=== PATIENT | female | born 1980 | race Caucasian/White ===

== ENCOUNTER 2019-12-11 07:49 | Outpatient (CLI) | payer OTHER, SELFPAY ==
[2019-12-11 08:03] LABS: Hematocrit 35.6 % (37.0-47.0); Hemoglobin 11.9 g/dL (12.0-15.0); Mean Corpuscular HGB Conc 33.4 g/dl (32-36); Mean Corpuscular Hemoglobin 27.2 pg (26-34); Mean Corpuscular Volume 81.5 fl (80-100); Mean Platelet Volume 11.3 fl (7.4-10.4); Platelet Count Result 187 k/mm3 (150-375); Red Blood Count 4.37 M/mm3 (4.2-5.4); Red Cell Distribution Width 11.8 % (11.5-14.5); White Blood Count 8.1 K/mm3 (4.5-10.0)
[2019-12-12 07:28] LABS: Rapid Plasma Reagin Non-Reactive (NonReactive)
== END 2019-12-11 07:50 | disposition home or self-care (01) ==
LOC: ANHLAB 07:51
PROVIDERS: Visit Provider Obstetrics & Gynecology
DX: Z34.93 Encounter for supervision of normal pregnancy, unspecified, third trimester (principal); Z3A.00 Weeks of gestation of pregnancy not specified
CPT/HCPCS: 36415; 85027; 86592; 86850; 86900; 86901

== ENCOUNTER 2019-12-12 09:56 | Inpatient (IN) | payer OTHER, SELFPAY ==
--- NOTE | 2019-11-19 16:18 | PC.NURSE ---
PATIENT IS A PREV C/S--PATIENT STATES SHE WANTS TO BECAUSE SHE HAS A ONE YEAR OLD AT HOME TO CARE FOR AFTER SHE HAS THE BABY. PATIENT STATES DR RIVERA FIRST TALK ABOUT REPEAT C/S BUT IS WILLING TO SEEN IF SHE WILL BE ABLE TO DO A . PATIENT STATES SHE NEVER DILATED WITH FIRST BABY AND HE WEIGHT OVER 9 LBS
[2019-12-12] VITALS (67 sets, daily range): BP systolic 83–127; BP diastolic 50–100; PULSE 61–240; RESP 14–74; TEMP 36.2–37.2; O2SAT 99–100; BMI 28.2
--- NOTE | 2019-12-12 00:49 | P.HP_ITS ---
H&P: HPI History of Present Illness Date/Time: 12/12/19 00:49 Chief complaint: Pre-admit, previous csection Narrative: 39 y/o at 39 weeks with a prior delivery, here for a scheduled repeat . Her has been uncomplicated. GBS pos. EFW 6#4oz four weeks ago. Review of Systems Review of Systems: All systems reviewed & are unremarkable except as noted in HPI and below PMFSH Past Medical History Medical History History of gestational diabetes Surgical History Surgical History History of delivery Family History Family History Other Unknown family medical history Social History Social History Substance use: never Spiritual care concerns: No Meds Home Medications and Allergies Home Medications Medication Instructions Recorded Confirmed Type PNV cmb#95-ferrous fumarate-FA 1 tablet PO DAILY 11/19/19 11/19/19 History [] Allergies Allergy/AdvReac Type Severity Reaction Status Date / Time No Known Allergies Allergy Verified 11/19/19 15:50 Exam Const: Orientation/consciousness: patient oriented x3 Other: Well- developed, well-nourished female in no acute distress. Neck: Thyroid: thyroid normal Lymphatic: no lymphadenopathy noted (in neck, axilla or inguinal nodes) Resp: Effort & Inspection: normal respiratory effort Auscultation: clear to auscultation bilaterally Cardio: Rate: regular rate Rhythm: regular rhythm Heart sounds: S1 normal heart sound present and S2 normal heart sound present GI: Other: ABD: Soft, nontender, gravid. FH 39 cm. FHR 150 bpm. : General: Yes no CVA tenderness Other: Cervix closed, thick. Back/Spine/Pelvis: Back: no CVA tenderness Skin: General skin exam: normal color and no rashes or lesions noted Neuro: General: patient oriented x3 Extrem: Other: Extremities: nontender with no edema Psych: Mental Status: mental status grossly normal Affect: normal affect Assessment and Plan Assessment and plan (1) History of delivery: Code(s): Z98.891 - History of uterine scar from previous surgery Status: Acute Assessment and Plan: A: IUP at 39 weeks with prior . P: She desires repeat . She understands risks of surgery to include risks of anesthesia, risks of pain, infection, bleeding, blood products, thromboembolic phenomena and damage to adjacent structures such as bowel, bladder, ureters, blood vessels and nerves. She understands all these risks and elects to proceed with surgery.
--- NOTE | 2019-12-12 11:19 | LDADM ---
This patient, Lashell Muro, was admitted to Labor/Delivery/Recovery 120 on 12/12/19 at 09:56. Plans for labor, pain management and were discussed with patient. Patient/family oriented to hospital policies and general routines including ID bracelet, bed and alarms, visiting hours, pain management, procedures, bathroom and other care routines, personal items, smoking policy, room service/diet and guest tray routines, security routines, and visiting hours. Patient/Family are encouraged to report perceived risks to care and to ask questions if they do not understand what they are told or what they should do. See OBIX for further documentation.
--- NOTE | 2019-12-12 12:17 | WPDHPUPDATE1 ---
History and Physical Update Update Date/Time: 12/12/19 12:17 History and Physical has been reviewed, including an updated exam of the patient. There are NO changes in the patient's condition. Risks, benefits, and alternatives have been discussed and questions answered. Patient agrees to proceed with procedure.
[2019-12-12] MEDS: LACTATED RINGERS 1,000 ML 125 ML IV CONT (13:01)
--- NOTE | 2019-12-12 13:15 | WPDANESEPPF ---
Anes - Initial Pre Proc Eval Procedure: Operation Date: 12/12/19 12:00 Proposed Procedures p Repeat Section - Zhao Lopez MD Date/Time: 12/12/19 13:15 Surgeon: Zhao Lopez MD Pre Op Diagnosis: Repeat C/S Patient Data Age: 39 Gender: F Height: 1.65 m Weight: 77 kg Last Vital Signs Pulse 74 12/12/19 12:47 BP 108/65 12/12/19 12:47 Allergies Allergy/AdvReac Type Severity Reaction Status Date / Time No Known Allergies Allergy Verified 11/19/19 15:50 Home Medications Medication Instructions Recorded Confirmed Type PNV cmb#95-ferrous fumarate-FA 1 tablet PO DAILY 11/19/19 11/19/19 History [] Patient hx anesthesia problems: none Family hx anesthesia problems: none PMFSH Surgical History Surgical History History of delivery Family History Family History Other Unknown family medical history Social History Social History Substance use: never Spiritual care concerns: No Anes - Eval Final PreProcedure Day of Procedure 12/12/19 13:15 Patient weight: overweight Heart: regular rate and rhythm Lungs: clear to auscultation and normal air movement Airway: Mallampati scale class II Neurological: alert and oriented Last oral intake: >/= 8 hours ASA classification: III Emergent: no Anesthetic plan: proceed Anesthesia type and monitoring: regional spinal Informed Consent: The patient's anesthetic plan and its attendant risks and benefits were discussed with the patient/family/POA. Questions were solicited and answers provided to the satisfaction of the patient/family/POA.
[2019-12-12] MEDS: KETOROLAC 30 MG/ML VIAL (*BKC) IV PUSH (14:28)
[2019-12-12] MEDS: OXYTOCIN 30 UNITS/NS 500 ML 30 UNITS/500 ML BAG 125 UNITS IV CONT (16:11)
--- NOTE | 2019-12-12 17:51 | PM.OBPRVD ---
OB - Delivery Note Procedure Procedure: Procedures Operation Date: 12/12/19 12:00 Actual Procedures Side Surgeon p Repeat Section Bilateral Zhao Lopez MD Estimated blood loss (mL): 390 Anesthesia type: Spinal Disposition: PACU Complications: None Narrative: The patient was taken to the operating room where she was prepared and draped in the usual sterile fashion in dorsal supine position with a leftward tilt. She received cefazolin preoperatively. Spinal anesthesia was found to be adequate. A Pfannenstiel skin incision was made along the previous scar line and was carried through to the underlying layer of the fascia. The fascia was incised in the midline and the incision was extended laterally. The fascia was dissected free of the underlying rectus muscles. The rectus muscles were in the midline. The peritoneum was identified, tented up and entered sharply. The peritoneal incision was extended superiorly and inferiorly with good visualization of the bladder. The bladder blade was placed. The vesicouterine peritoneum was identified, tented up and entered sharply. The incision was extended laterally and the bladder flap was developed. The bladder blade was replaced. The uterus was then incised sharply in a transverse fashion along the lower uterine segment. The incision was extended laterally. The infant's head was delivered atraumatically to the sterile field, followed by the body. The nose and mouth were bulb suctioned. After a delay, the cord was clamped and cut. The was handed off the field. Cord blood was collected. The placenta was removed manually and was passed off the field. The uterus was exteriorized and cleared of all clots and debris. The uterus, tubes and ovaries were normal in appearance. The uterine incision was reapproximated using 0 Monocryl in a running, locked fashion. A second, imbricating layer of the same suture was placed. Excellent hemostasis resulted as did excellent reapproximation of the normal anatomy. The uterus was returned the abdomen. The pelvis was irrigated copiously with warmed normal saline. Rigorous hemostasis was assured. The fascial layer was reapproximated using 0 Vicryl in a running fashion. The skin was closed with a running, subcuticular stitch of 4 0 Vicryl. Dermaflex was applied externally. Sponge, lap, needle and instrument counts were correct. The patient was taken to the recovery room in stable condition. The went to the nursery in stable condition. I was present and scrubbed the entire procedure. Baby Date of : 12/12/19 Time of : 14:12 Weeks of gestation at delivery: 39 gender: Male Weight (pounds): 7 Weight (ounces): 13 presentation: vertex Placenta delivery description: Manual Removal and Normal Configuration cord vessel description: 3 Vessels and Nuchal Cord score one minute: 8 score five minutes: 9
--- NOTE | 2019-12-12 17:53 | PM.OBDSVD ---
DS: Admitting Diagnosis Admitting Diagnosis Admitting Diagnosis: IUP at 39 weeks Prior DS: Discharge Diagnosis Discharge Diagnosis (1) S/P repeat low transverse : Code(s): Z98.891 - History of uterine scar from previous surgery Status: Acute OB - DS: Summary OB Procedures : None OB Procedures Intrapartum: OB Procedures: : None Peripartum Data Procedures: Procedures Operation Date: 12/12/19 12:00 Actual Procedures Side Surgeon p Repeat Section Bilateral Zhao Lopez MD Time Spent with Patient Time attestation: Total time spent providing and/or coordinating discharge services: Discharge Plan Discharge Attending physician on discharge: Zhao Lopez Consulting providers: Rc Frank Discharging Clinician: Zhao Lopez Patient Disposition: Home, Self-Care Activity: may shower, may drive after 2 weeks and pelvic rest Diet: regular Wound Care Instructions: incision open to air Discharge Instructions: Education: Mom and Baby Guide Given to: Mother Follow-Up: Call your delivering provider's office for an appointment to be seen in: 6 Weeks Mom and baby should come to the [facility] for the follow-up appointment. Appointment Date/Time: December 16, 2019 at 11:00 am What to expect at your follow-up visit: Blood Pressure Check Physical Assessment Call [phone] if you are unable to keep your appointment time. BREAST CARE: * Wear a snug supportive bra. * For engorgement discomfort: Breast Feeding: * Apply warm moist washcloths * Express milk as needed to relieve engorgement * Wear loose clothing * For sore nipples: * Identify correct latch-on * Apply warm moist washcloths before and after nursing * Air dry nipples after nursing * May apply Lansinoh cream to nipples ABDOMINAL INCISION: * Allow incision to air dry * Do NOT use lotions for powders on your incision * When showering, allow soap and water to run over the incision, but do not wash incision ACTIVITY: * Rest as much as possible. * Do not exercise or lift anything heavier than your baby (such as laundry or other children.) * Avoid stairs or driving as much as possible. * Do not put anything into the vagina. No douching, tampons, or sexual activity until seen by physician. NOTIFY PHYSICIAN IF YOU HAVE ANY QUESTIONS OR IF ANY OF THE FOLLOWING SYMPTOMS OCCUR: * If your episiotomy or incision becomes red, swollen, or more painful than what you have experienced in the hospital. * If your vaginal bleeding becomes foul smelling. * If your vaginal bleeding becomes more heavy than a period or if your bleeding changes from pink to bright red. However, you may pass an occasional walnut-sized clot once or twice for the first week . * If you experience a sharp, shooting pain in your calves. * If you discover a hard, reddened area on your breast or if you experience flu-like symptoms. DIET: * Eat regular, well-balanced meals. * Drink plenty of fluids daily. If , drink to thirst.Call or return if temperature above 100.4? F, increased abdominal pain, increased vaginal bleeding or any new problems. Stand Alone Forms: General Discharge Information Follow-up/Referrals: Zhao Lopez MD [Physician] - (4 weeks) Discharge Medications: New hydrocodone-acetaminophen [[place]] 5-325 mg tablet 1 - 2 tablet PO Q6H PRN (Reason: pain) Qty: 30 RF: 0 ibuprofen 600 mg tablet 600 mg PO Q6H PRN (Reason: cramps) Qty: 30 RF: 0 Continued PNV cmb#95-ferrous fumarate-FA [] 28 mg iron- 800 mcg Tablet 1 tablet PO DAILY RF: 0 Date of admission: 12/12/19 09:56 Primary Care Provider: PHYSICIAN,IT IN[employer]STRUCTURE ENGINEER Admitting Provider: Zhao Lopez Discharge Date/Time: 12/14/19 10:19 Attending physician on admission: Yonny Bowser
--- NOTE | 2019-12-12 18:03 | PC.NURSE ---
Patient transferred to post room #286 via stretcher. Support person present. Oriented to unit, room, information board, rooming in, admission packet and security measures. Patient verbalizes understanding.
[2019-12-12] MEDS: DEXTROSE 5%/0.45% SOD CHL 1,000 ML 125 ML IV CONT (20:30)
[2019-12-13 04:45] VITALS: BP 118/68; PULSE 65; RESP 16; TEMP 36.6
[2019-12-13 05:12] LABS: Basophils Percent Auto 0.4 % (0.2-1.2); Eosinophils Percent Auto 0.1 % (0-4.4); Hematocrit 28.9 % (37.0-47.0); Hemoglobin 9.5 g/dL (12.0-15.0); Immature Granulocyte Absolute 0.02 K/mm3 (0.00-0.031); Immature Granulocyte Percent A 0.3 % (0-0.5); Lymphocytes Absolute Auto 1.51 K/mm3 (0.9-3.2); Lymphocytes Percent Auto 21.2 % (18.3-44.2); Mean Corpuscular HGB Conc 32.9 g/dl (32-36); Mean Corpuscular Hemoglobin 27.3 pg (26-34); Mean Platelet Volume 11.6 fl (7.4-10.4); Monocytes Absolute Auto 0.5 K/mm3 (0.1-0.6); Monocytes Percent Auto 7.2 % (2.6-8.5); Neutrophils Percent Auto 70.8 % (45.5-73.1); Platelet Count Result 148 k/mm3 (150-375); Red Blood Count 3.48 M/mm3 (4.2-5.4); Red Cell Distribution Width 12.1 % (11.5-14.5); White Blood Count 7.1 K/mm3 (4.5-10.0)
[2019-12-13] MEDS: IBUPROFEN 600 MG TABLET PO ×4 (05:45→21:02)
--- NOTE | 2019-12-13 07:04 | P.PNOB_ITS ---
OB - PN: Subj Subjective Date/time seen: 12/13/19 07:04 Patient comments: no complaints and pain well controlled baby status: doing well and nursing well OB - PN: Obj Data Labs CBC & Chem 7: 12/13/19 04:56 Labs: Laboratory Results - last 24 hr 12/13/19 04:56 WBC 7.1 RBC 3.48 L Hgb 9.5 L Hct 28.9 L MCV 83.0 MCH 27.3 MCHC 32.9 RDW 12.1 Plt Count 148 L MPV 11.6 H Immature Gran % (Auto) 0.3 Neut % (Auto) 70.8 Lymph % (Auto) 21.2 Taliaferro % (Auto) 7.2 Eos % (Auto) 0.1 Baso % (Auto) 0.4 Lymph # (Auto) 1.51 Taliaferro # (Auto) 0.5 Eos # (Auto) 0.0 Baso # (Auto) 0.0 Abs Immat Gran (auto) 0.02 Absolute Neuts (auto) 5.0 Absolute Nucleated RBC 0.0 Nucleated RBC % 0.0 OB - PN A/P Plan day: 1 Plan: routine care Time Spent With Patient Time: Total time spent is greater than 50% in coordination of care (as documented) at patient's floor/unit and/or counseling patient: Time with patient: less than 15 minutes Review of Systems Review of Systems: All systems reviewed & are unremarkable except as noted in HPI and below Exam Const: General: no acute distress Eyes: General: appearance normal, both eyes and all related structures Neck: Neck: supple and no JVD Thyroid: thyroid normal Resp: Effort & Inspection: normal respiratory effort Auscultation: clear to auscultation bilaterally Cardio: Rate: regular rate Rhythm: regular rhythm GI: Inspection: normal to inspection and incision Percussion: Yes normal to percussion Auscultation: normal bowel sounds : General: Yes bladder normal to palpation External Female Exam: normal external appearance Speculum Exam - Vagina: normal vaginal discharge and No vaginal bleeding Speculum Exam - Cervix: nontender Bimanual exam- vagina & uterus: bladder normal to palpation and No Cervical tenderness present OB/external & speculum: No vaginal bleeding Skin: General skin exam: no rashes or lesions noted Extrem: General: normal to inspection and no edema Psych: Mental Status: mental status grossly normal Affect: normal affect
[2019-12-13 08:20] VITALS: BP 113/68; PULSE 76; RESP 18; TEMP 36.6; O2SAT 98
[2019-12-13] MEDS: POLYSACCHARIDE IRON COMPLEX 150 MG CAPSULE PO ×2 (08:45→17:27)
[2019-12-13] MEDS: DOCUSATE SODIUM 100 MG CAPSULE PO ×2 (08:45→17:27)
[2019-12-13] MEDS: MULTIVIT/MIN/PREN/FOL AC/IRON TABLET 1 TAB PO (08:45)
--- NOTE | 2019-12-13 09:00 | PC.NURSE ---
Mother called out for assist with feeding due to sleepy infant. This is mother's 2nd child to breastfeed. Consulted with patient, reviewed infant feeding cues, frequencies, duration of feedings, feeding elimination flow sheet, and signs of adequate intake. Demonstrated stimulation techniques to wake infant for feeding. Assisted with infant to breast. Reviewed positioning/alignment in cross cradle, holding breast in U hold and guided asymmetrical latch on. Discussed rational for each. Several attempts before infant was able to wake to latch deeply. Once at breast infant nursed eagerly, with steady draws and frequent swallowing noted. Reviewed signs of a correct latch, effective nursing and suck swallow ratio. Infant was able to maintain latch without discomfort to mother. Reviewed signs of a correct latch, effective nursing and suck swallow ratio. Nipple care reviewed. Advised to stimulate to keep infant awake and nursing effectively for increased intake and assist with maintaining deep latch. Demonstrated how to adjust latch more deeply while feeding. Instructed mother to call out for RN assistance if she is unable to latch infant for feeding or she has discomfort with nursing. Instructed feeding should be initiated three hours from start of last feeding or if feeding cues are noted before. Mother voiced understanding of information shared. Mother is feeding as required and waking infant to feed if needed. is currently meeting outcomes for weight, output, jaundice and feeding frequencies. Mother states she feels confident to continue effective at home. Reviewed transition to breast milk, signs of adequate intake, and engorgement/relief. Instructed to call ICP if intake/output less than required. Reviewed regular medications mother is taking. Information provided per Janelle. Reviewed community resources on the [facility] website and in the Mom/Baby guide. Information on outpatient services provided. Mother has no further questions at this time.
--- NOTE | 2019-12-13 09:11 | WPDANLDPN2 ---
Anes-Prog Note L&D Date/Time: 12/13/19 09:11 Comfortable throughout: section Neuraxial method: spinal Epidural/Spinal procedure site: clean & non-tender Neuro status: Neuro function grossly intact. Cardiovascular status: normal Respiratory status: normal Airway patency: baseline Mental status: baseline Post-Op hydration status: normal Vital Signs: Last Vital Signs Temp 36.6 C 12/13/19 04:45 Pulse 65 12/13/19 04:45 Resp 16 12/13/19 04:45 BP 118/68 12/13/19 04:45 Pulse Ox 100 12/12/19 17:45 I/O: Intake & Output 12/12/19 12/13/19 12/13/19 23:59 07:59 15:59 Intake Total 700 400 Output Total 500 800 Balance 200 -400 Post-procedural complaints: none Patient feedback: Patient satisfied with anesthetic care.
--- NOTE | 2019-12-13 09:12 | WPDANLDNPN2 ---
Anes-Prog Note L&D-Neuraxial Date/Time: 12/13/19 09:12 Neuraxial medications: intrathecal PF morphine Opiod-related complaints: none Patient feedback: Patient satisfied with post-operative pain management.
[2019-12-13 18:55] VITALS: BP 106/68; PULSE 72; RESP 16; TEMP 36.9
[2019-12-14] MEDS: IBUPROFEN 600 MG TABLET PO (05:18)
--- NOTE | 2019-12-14 07:31 | PM.OBPNVD ---
OB - PN: Subj Subjective Date/time seen: 12/14/19 07:31 Patient comments: pain well controlled [place] baby status: doing well and nursing well OB - PN: Obj Data Labs CBC & Chem 7: 12/13/19 04:56 OB - PN A/P Time Spent With Patient Time: Total time spent is greater than 50% in coordination of care (as documented) at patient's floor/unit and/or counseling patient: Review of Systems Review of Systems: All systems reviewed & are unremarkable except as noted in HPI and below Exam Const: General: no acute distress Eyes: General: appearance normal, both eyes and all related structures Neck: Neck: supple and no JVD Thyroid: thyroid normal Resp: Effort & Inspection: normal respiratory effort Auscultation: clear to auscultation bilaterally Cardio: Rate: regular rate Rhythm: regular rhythm GI: Inspection: incision (cdi) Percussion: Yes normal to percussion : General: Yes bladder normal to palpation External Female Exam: normal external appearance Speculum Exam - Vagina: normal vaginal discharge and No vaginal bleeding Speculum Exam - Cervix: nontender Bimanual exam- vagina & uterus: bladder normal to palpation and No Cervical tenderness present OB/external & speculum: No vaginal bleeding Skin: General skin exam: no rashes or lesions noted Extrem: General: normal to inspection and no edema Psych: Mental Status: mental status grossly normal Affect: normal affect
[2019-12-14] MEDS: MULTIVIT/MIN/PREN/FOL AC/IRON TABLET 1 TAB PO (07:52)
[2019-12-14] MEDS: POLYSACCHARIDE IRON COMPLEX 150 MG CAPSULE PO (07:53)
[2019-12-14] MEDS: DOCUSATE SODIUM 100 MG CAPSULE PO (07:53)
[2019-12-14 08:00] VITALS: BP 114/69; PULSE 65; RESP 16; TEMP 36.4; O2SAT 100
[2019-12-16 11:27] VITALS: BP 136/74; PULSE 66; RESP 20; O2SAT 100
== END 2019-12-14 10:19 | disposition home or self-care (01) | DRG 788 ==
LOC: ANHLDR 13:15 → ANHOB2 17:54 → ANHLDR 12-16 11:52 → ANHOB2 12-16 11:52
PROVIDERS: Admitting Provider Obstetrics & Gynecology; Visit Provider Obstetrics & Gynecology
PROC: 10D00Z1 Extraction of Products of Conception, Low, Open Approach (ICD-10-PCS; CPT 59514; principal; 2019-12-12 12:00)
DX: O34.211 Maternal care for low transverse scar from previous cesarean delivery (principal); Z37.0 Single live birth; Z3A.39 39 weeks gestation of pregnancy; O99.824 Streptococcus B carrier state complicating childbirth; O69.81X0 Labor and delivery complicated by cord around neck, without compression, not applicable or unspecified
CPT/HCPCS: 36415; 85025; A9270; J0131; J1885; J2175; J2274; J2370; J2405; J2590; J7120

== ENCOUNTER → 2021-12-02 16:14 | Outpatient (CLI) | payer OTHER, SELFPAY ==
--- NOTE | ~2021-12-02 | MM_ITS ---
EXAMINATION: MM screening josey BI w stephie HISTORY: Screening mammogram TECHNIQUE: Craniocaudal and mediolateral oblique 3-D tomosynthesis images were obtained and synthetic 2-D images were generated. CAD analysis was submitted and interpreted. COMPARISON: No prior mammogram is available for comparison at this institution. BREAST PARENCHYMAL COMPOSITION: The breasts are extremely dense, which lowers the sensitivity of mamm ography. FINDINGS: There is no evidence of suspicious mass, calcification, or architectural distortion to sugg est malignancy in either breast. There has been no suspicious interval change. IMPRESSION: 1. No mammographic evidence of malignancy. 2. Recommend routine screening mammography in one year. BI-RADS Category 1: Negative Reviewed, dictated and finalized at location B.
== END ==
PROVIDERS: PCP Physician Assistant; Visit Provider Obstetrics & Gynecology
DX: Z12.31 Encounter for screening mammogram for malignant neoplasm of breast (principal)
CPT/HCPCS: 77063; 77067

== ENCOUNTER 2022-05-09 01:28 | Emergency (ER) | payer OTHER, SELFPAY ==
[2022-05-09 01:32] VITALS: BP 136/78; PULSE 82; RESP 18; TEMP 37.2; O2SAT 100
--- NOTE | 2022-05-09 01:57 | ED.GENADULT ---
HPI - General Adult General Chief complaint: Headache Stated complaint: Headache, sore throat Time Seen by Provider: 05/09/22 01:31 History of Present Illness HPI narrative: 41-year-old female presented to the emergency department for evaluation of sore throat and headache. Patient states that on [place] her symptoms started acutely. Patient did have a telemedicine evaluation and they suspected it was influenza. Patient reports she has had vaccination against COVID and influenza. Patient does describe a worsening sore throat and worsening headache. Patient has been taking Tylenol and ibuprofen for pain control without significant improvement. Patient denies any prior history of migraine headaches. Related Data Home Medications Medication Instructions Recorded Confirmed oseltamivir 75 mg capsule mg 05/09/22 Allergies Allergy/AdvReac Type Severity Reaction Status Date / Time No Known Allergies Allergy Verified 05/09/22 01:35 Review of Systems Review of Systems: CONSTITUTIONAL: Denies fever, chills, or sweats. EYES: Denies visual changes, redness, or discharge. ENT: Denies rhinorrhea, congestion, sore throat, or otalgia. CARDIOVASCULAR: Denies chest pain, palpitations, or edema. RESPIRATORY: Denies cough or dyspnea. GASTROINTESTINAL: Denies abdominal pain, nausea, vomiting, or diarrhea. GENITOURINARY: Denies dysuria or hematuria. SKIN: Denies rash or itching. MUSCULOSKELETAL: Denies back pain, joint pain, or myalgia. NEUROLOGIC: See HPI [facility] Past Medical History Medical History (Updated 05/10/22 @ 00:00 by Minerva Spann) History of gestational diabetes Surgical History Surgical History (Updated 12/12/19 @ 17:54 by Zhao Lopez MD) History of delivery Family History Family History Other Unknown family medical history Social History Social History Substance use: never Spiritual care concerns: No Exam Narrative: APPEARANCE: Well appearing, no pain, no distress, well-nourished. HEAD: normocephalic, atraumatic. EYES: PERRLA/EOMI, conjunctivae clear. NOSE: Normal no drainage EARS:TMS clear with good light reflex. THROAT: Bilateral tonsillar exudate NECK: Supple. No adenopathy, no masses. RESPIRATORY: Airway patent, respirations nonlabored. Clear to auscultation bilaterally, no rales, rhonchi, wheezing. CARDIOVASCULAR: Regular rate and rhythm without murmurs rubs or gallops. ABDOMINAL: Soft, nontender, nondistended, normal bowel sounds MUSCULOSKELETAL: Moves all extremities. Strength/ROM intact, No edema, No calf tenderness. NEURO: Alert. Cranial nerves II through XII intact. Grossly intact SKIN: Warm, dry. Normal Color Course Course Emergency Course: Differential diagnosis for patient's symptoms did include but were not limited to strep throat, influenza, RSV, COVID, viral syndrome. Patient did test positive for strep throat. Patient was started on amoxicillin and amoxicillin will be continued. Patient was treated with IV normal saline, IV Benadryl, IV Compazine and had resolution of her headache. Differential diagnosis for headache did include migraine, acute headache. Patient is updated on results of the work-up and plan for treatment. All question concerns were addressed. Patient was improved at time of discharge. Vital Signs Vital signs: Vital Signs Temperature 98.9 F 05/09/22 01:32 Pulse Rate 82 05/09/22 01:32 Respiratory Rate 18 05/09/22 01:32 Blood Pressure 136/78 05/09/22 01:32 Pulse Oximetry 100 05/09/22 01:32 Oxygen Delivery Room Air 05/09/22 01:32 Temperature 98.9 F 05/09/22 01:32 Pulse Rate 82 05/09/22 01:32 Respiratory Rate 18 05/09/22 01:32 Blood Pressure 136/78 05/09/22 01:32 Pulse Oximetry 100 05/09/22 01:32 Oxygen Delivery Room Air 05/09/22 01:32 Medical Decision Making Vital Signs Jenny
[2022-05-09] MEDS: PROCHLORPERAZINE EDISYLATE 10 MG/2 ML VIAL IV PUSH (02:03)
[2022-05-09] MEDS: SODIUM CHLORIDE 0.9% IV 1,000 ML 999 ML IV CONT (02:03)
[2022-05-09] MEDS: KETOROLAC 15 MG/ML VIAL (*BKC) IV PUSH (02:03)
[2022-05-09] MEDS: diphenhydrAMINE HCl INJ 50 MG/ML VIAL 25 MG IV PUSH (02:03)
[2022-05-09 02:23] LABS: Strep Group A RT-PCR DETECTED (Negative)
[2022-05-09 02:35] LABS: Influenza A QL RT-PCR Negative (Negative); Influenza B QL RT-PCR Negative (Negative); RSV RNA, RT-PCR Negative (Negative); SARS-CoV-2 RNA PCR Negative
[2022-05-09] MEDS: AMOXICILLIN 500 MG CAPSULE PO (02:35)
== END 2022-05-09 02:54 | disposition home or self-care (01) ==
PROVIDERS: Emergency Provider Emergency Medicine; PCP Physician Assistant
DX: J02.0 Streptococcal pharyngitis (principal); Z20.822 Contact with and (suspected) exposure to COVID-19
CPT/HCPCS: 87637; 87651; 96361; 96374; 96375; 99284; A9270; J0780; J1200; J1885; J7030

== ENCOUNTER → 2023-05-02 13:58 | Outpatient (CLI) | payer OTHER, SELFPAY ==
--- NOTE | ~2023-05-02 | MM_ITS ---
EXAMINATION: MM screening [facility] BI w stephie HISTORY: Screening mammogram TECHNIQUE: Craniocaudal and mediolateral oblique 3-D tomosynthesis images were obtained and synthetic 2-D images were generated. CAD analysis was submitted and interpreted. COMPARISON: 12/02/2021 BREAST PARENCHYMAL COMPOSITION: The breasts are extremely dense, which lowers the sensitivity of mamm ography. FINDINGS: No suspicious mass, calcification, or architectural distortion are identified in either kevin ast to suggest malignancy. There has been no suspicious interval change. IMPRESSION: 1. No mammographic evidence of malignancy. 2. Recommend routine screening mammography in one year. BI-RADS Category 1: Negative Reviewed, dictated and finalized at location A. 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
== END ==
PROVIDERS: PCP Obstetrics & Gynecology; Visit Provider Obstetrics & Gynecology
DX: Z12.31 Encounter for screening mammogram for malignant neoplasm of breast (principal)
CPT/HCPCS: 77063; 77067

== ENCOUNTER 2025-03-07 12:16 | Outpatient (CLI) | payer OTHER, SELFPAY ==
--- NOTE | ~2025-03-07 | MM_ITS ---
EXAMINATION: MM screening [facility] BI w stephie HISTORY: Screening TECHNIQUE: Craniocaudal and mediolateral oblique 3-D tomosynthesis images were obtained and synthetic 2-D images were generated. CAD analysis was submitted and interpreted. COMPARISON: Comparison to multiple prior studies sequentially, with oldest reviewed study dated 12/02/2021. BREAST PARENCHYMAL COMPOSITION: Dense: The breasts are extremely dense, which lowers the sensitivity of mammography. FINDINGS: There is no evidence of suspicious mass, calcification, or architectural distortion to suggest malignancy in either breast. There has been no suspicious interval change. IMPRESSION: 1. No mammographic evidence of malignancy. 2. Recommend routine screening mammography in one year. BI-RADS Category 1: Negative Reviewed, dictated and finalized at location B. UCTION CONTROL SUPERVISOR
--- OUTSIDE RECORDS SUMMARY | 2025-03-07 16:50 | XMS_ITS | Encounter Summary ---
Author Organization [facility] Address [address] [place] [address] Care Team Providers Care Payroll And Benefits Manager Name Role Phone Unavailable Primary Care Provider Unavailabl e Encounter Details Date Type Department Care Team (Latest Contact Info) Description 09/28/2007 Outpatient Historical [facility] GRADUATE RESEARCH ASSISTANT - [place] [id number] [facility] [address] [place] [address] Hannah Yanes, PAUL [address] [facility] [facility] [address] [place] [address] Routine Gynecological Examination Social History Tobacco Use Types Packs/Day Years Used Date Smoking Tobacco: Never Assessed Comments Unknown Sex and Gender Information Value Date Recorded Sex Assigned at Not on file Legal Sex Female 4:03 AM SERVICE SPECIALIST Gender Identity Not on file Sexual Orientation Not on file documented as of this encounter Plan of Treatment Not on file documented as of this encounter Procedures Procedure Name Priority Date/Time Associated Diagnosis Comments CERV/VAG CYTOPATH,SUREPATH FCL PT &RFLX HPV Routine 09/27/2007 12:18 PM CDT documented in this encounter Results * CERV/VAG CYTOPATH,SUREPATH FCL PT &RFLX HPV (09/27/2007 12:18 PM CDT) SOURCE Information not provided [facility] LAST MENSTRUAL PERIOD Information not provided [facility] CYTOTECHNOLOGI ST: ANTONIO SUMMERS(ASCP) [facility] Comment: Lab test performed by: [employer] [facility] [address] [place] [address] LUKE WHALEN MD REPORT STATUS FINAL [facility] Tools And Parts Attendant Pap Comment This case was successfully processed by the [employer]) slide police manager. Based on the cytology result, reflex High Risk HPV DNA testing was not performed. [facility] ADEQUACY: Satisfactory for evaluation. Endocervical/trans formation zone component absent. Age and/or menstrual status not provided [facility] PREV PAP: Information not provided [facility] CLINICAL INFORMATION Information not provided [facility] PREV BX: Information not provided [facility] PAP INTERP Negative for intraepithelial lesion or malignancy. [facility] Endocervical 09/27/2007 12:1 8 PM CDT 09/28/2007 12:22 PM CDT Hannah Yanes NP PATHOLOGY/CYTOLOGY ORDERABLES Fi nal Result [facility] CLIA# [id number] [address] [facility] [address] documented in this encounter Visit Diagnoses Diagnosis Routine gynecological examination documented in this encounter
--- OUTSIDE RECORDS SUMMARY | 2025-03-07 16:50 | XMS_ITS | Encounter Summary ---
Author Organization [facility] Address [address] [place] [address] Care Team Providers Care Title Abstractor Name Role Phone Sheldon Dunn DO Primary Care Provider [phone] Encounter Details Date Type Department Care Team (Late st Contact Info) Description 05/30/2020 Lab Requisition [facility] [address] [facility] [facility] [place] [id number] Ismael Lewis MD [address] [facility] [address] Social History Tobacco Use Types Packs/Day Years Used Date Smoking Tobacco: Former Cigarettes Smokeless Tobacco: Never Alcohol Use Standard Drinks/Week Comments Yes 0 (1 standard drink = 0.6 oz pur e alcohol) Comments Unknown Sex and Gender Information Value Date Recorded Sex Assigned at Not on file Legal Sex Female 8:10 PM CDT Gender Identity Not on file Sexual Orientation Not on file documented as of this encounter Plan of Treatment Not on file documented as of this encounter Procedures Procedure Name Priority Date/Time Associated Diagnosis Comments DERMATOPATHOLOGY Routine 05/29/2020 3:33 AM OPEN DIE INSPECTOR documented in this encounter Results * DERMATOPATHOLOGY (05/29/2020 3:33 AM OPEN DIE INSPECTOR) Case Report Dermatopathology Report Case: [id number] Authorizing Provider: Ismael Lewis MD Collected: 05/29/2020 03:33 AM Ordering Location: [facility] Received: 05/30/2020 11:45 AM Pathologist: Denzel Arceo MD Specimens: A) - Skin, mid back B) - Skin, left axilla 4:51 PM [facility] Final Diagnosis Specimen A. SKIN, mid back: INTRADERMAL MELANOCYTIC NEVUS (D22.5) Specimen B. SKIN, left axilla: INTRADERMAL MELANOCYTIC NEVUS (D22.5) 4:51 PM [facility] at [address]51 OPEN DIE INSPECTOR Clinical History A: Irr nevus vs other. Path# [id number]. A: Irr nevus vs other. Path# [id number]. 4:51 PM [facility] Gross Description Specimen A: Received is one formalin filled container labeled with the patient's name and designated mid back. The specimen consists of a shave biopsy measuring [id number]. Jar 0. Specimen B: Received is one formalin filled container labeled with the patient's name and designated left axilla. The specimen consists of a shave biopsy measuring [id number]. Jar 0. 4:51 PM [facility] Microscopic Description Specimen A. SKIN, mid back: There are nests of cytologically bland melanocytes within the dermis that mature with depth. Specimen B. SKIN, left axilla: There are nests of cytologically bland melanocytes within the dermis that mature with depth. 4:51 PM [facility] Disclaimer An external and internal positive and negative controls are appropriate for the histochemical, immunohistochemical and immunofluorescence stain(s) in this case (if any), except where stated explicitly. The performance characteristics of the stain(s) cited in this report were developed and its performance characteristic determined by the Dermatopathology Laboratory at [facility], directed by Dr. Sarai Arceo. These tests need not be, and therefore are not, approved by the [place] Food and Drug Administration. The tests are used for clinical purposes. Billing Codes Specimen Charges Stain Charges 22391 68034 1 1 4:51 PM [facility] Embedded Images 4:51 PM [facility] Pathology/Cytology TISSUE SPECIMEN FROM SKIN / Unknown 05/29/2020 3:33 AM OPEN DIE INSPECTOR 05/30/2020 11:45 AM OPEN DIE INSPECTOR Miscellaneous samples (specimen) TISSUE SPECIMEN FROM SKIN / Unknown 05/29/2020 3:33 AM OPEN DIE INSPECTOR 05/30/2020 11:45 AM OPEN DIE INSPECTOR us Ismael Lewis MD LAB - PATHOLOGY/CYTOLOGY ORDER HORTENCIA Final Result DERMATOPATHOLOGY LABORATORY [facility] - Department of Dermatology [facility] Special[facility] Medicine [address] [place] [address], [address] [phone] documented in this encounter Visit Diagnoses Not on filedocumented in this encounter Care Teams Title Abstractor Relationship Specialty Start Date End Date Sheldon Dunn DO [address] [address] PCP - General 08/21/17 documented as of this encounter
--- OUTSIDE RECORDS SUMMARY | 2025-03-07 16:50 | XMS_ITS | Clinical Summary ---
Author Organization [facility] Address [address] [place] [address] Care Team Providers Care Fiberline Supervisor Name Role Phone Unavailable Primary Care Provider Unavailabl e Allergies No known active allergies Medications vit-iron fumarate-FA ( S) 27-0.8 mg Oral Tab Take 1 Tab by mouth daily. Active Active Problems Problem Noted Date Diagnosed Date Threatened miscarriage 11/30/2011 Comments Yes Family History Medical History Relation Name Comments Other Maternal Grandmother car acc ident Other Mother broken back and ankle Breast Cancer Neg Hx Ovarian Cancer Neg Hx Relation Name Status Comments Maternal Grandmother Mother Alive Social History Tobacco Use Types Packs/Day Years Used Date Smoking Tobacco: Former Cigarettes 0.5 10 Smokeless Tobacco: Never Alcohol Use Standard Drinks/Week Comments No 0 (1 standard drink = 0.6 oz pur e alcohol) socially, monthly Comments Yes Sex and Gender Information Value Date Recorded Sex Assigned at Not on file Legal Sex Female 4:03 AM MECHANICAL INTEGRITY SPECIALIST Gender Identity Not on file Sexual Orientation Not on file Occupation Industry Job Start Date Job End Date Not on file Not on file Not on file Not on file Last Filed Vital Signs Vital Sign Reading Time Taken Comments Blood Pressure 122/72 11/30/2011 2:39 PM CDT Pulse 65 11/30/2011 2:39 PM CDT Temperature 36 C (96.8 F) 11/30/2011 2:39 PM CDT Respiratory Rate 18 11/30/2011 2:39 PM CDT Oxygen Saturation - - Inhaled Oxygen Concentration - - Weight 59.9 kg (132 lb) 11/30/2011 2:39 PM CDT Height 167.6 cm (5' 6) 11/30/2011 2:39 PM CDT Body Mass Index 21.31 11/30/2011 2:39 PM CDT Plan of Treatment Health Maintenance Due Date Last Done Comments DTAP/TDAP/TD VACCINES (1 - Tdap) 2000 HEPATITIS B VACCINES (1 of 3 - 19+ 3-dose series) 2000 HPV VACCINES (1 - 3-dose SCD M series) 2008 PAP SMEAR 06/14/2013 06/14/2010, 05/26, 06/14/2010, Additional history exists CERVICAL CANCER SCREENING 06/24/2014 HPV/Cotest (21-29) 06/24/2014 06/24/2009 HPV/Cotest (30-65) 06/24/2014 06/24/2009 BREAST CANCER SCREENING 2021 INFLUENZA VACCINE (#1) 2024 RSV VACCINE (60+ or ) (1 - 1-dose 75+ series) 2056 Procedures Procedure Name Priority Date/Time Associated Diagnosis Comments CERV/VAG CYTOPATH, SUREPATH W/RFLX HPV Routine 06/14/2010 3:44 PM MECHANICAL INTEGRITY SPECIALIST Routine gynecological examination CERV/VAG CYTOPATH,SUREPATH FOCAL PT & HPV Routine 06/24/2009 11:50 AM MECHANICAL INTEGRITY SPECIALIST Routine Gynecological Examination from Last 3 Months or Most Recently Relevant to Health Maintenance Results * CERV/VAG CYTOPATH, SUREPATH W/RFLX HPV (06/14/2010 3:44 PM MECHANICAL INTEGRITY SPECIALIST) REPORT STATUS FINAL [employer] [facility] CLINICAL INFORMATION [employer] [facility] Comment:Oral contraceptives LAST MENSTRUAL PERIOD [employer] [facility] Comment:Information not prov ided PREV PAP: [employer] [facility] Comment:WNL PREV BX: [employer] [facility] Comment:Information not prov ided SOURCE [employer] [facility] Comment:Endocervix ADEQUACY: [employer] [facility] Comment: Satisfactory for evaluation. Endocervical/transformation zone component absent. Age and/or menstrual status not provided INTERPRETATION [employer] [facility] Comment:Negative for intraep ithelial lesion or malignancy. COMMENT [employer] [facility] Comment: Based on the cytology result, reflex High Risk HPV DNA testing was not performed. WIRE ROPE SLING MAKER: [facility] Comment:ANTONIO CANO(ASCP) REVIEW WIRE ROPE SLING MAKER: [facility] Comment: ANTONIO MULLIGAN(ASCP) Test Performed at: [facility] [address] [place] [address] LUKE PALMA DO Endocervical 06/14/2010 3:44 PM MECHANICAL INTEGRITY SPECIALIST Presley Kay MD PATHOLOGY/CYTOLOGY ORDERABLES F inal Result INTERFACE SYSTEM Refer to clinic/hospital department [facility] [address] [place] [address] * CERV/VAG CYTOPATH,SUREPATH FOCAL PT & HPV (06/24/2009 11:50 AM MECHANICAL INTEGRITY SPECIALIST) REPORT STATUS FINAL [facility] CLINICAL INFORMATION [facility] Comment:Information not prov ided LAST MENSTRUAL PERIOD [facility] Comment:Information not prov ided PREV PAP: [facility] Comment:09/28/07 WNL PREV BX: [facility] Comment:Information not prov ided SOURCE [facility] Comment:Endocervix ADEQUACY: [facility] Comment: Satisfactory for evaluation. Endocervical/transformation zone component present. Age and/or menstrual status not provided INTERPRETATION [facility] Comment:Negative for intraep ithelial lesion or malignancy. COMMENT [facility] Comment: This Pap test has been evaluated with computer assisted technology. WIRE ROPE SLING MAKER: [facility] Comment: ANTONIO ASCENCIO(ASCP) Test Performed at: [employer] [facility] [address] [place] [address] DAY CAMARA MD HPV HIGH RISK DNA DETECTION NOT DETECTED [facility] Comment: REFERENCE RANGE: NOT DETECTED TESTED FOR HIGH RISK TYPES 16,18,31,33,35,39,45,51,52, 56,58,59,68. THE ANALYTICAL PERFORMANCE CHARACTERISTICS OF THIS ASSAY, WHEN USED TO TEST SUREPATH OR VAGINAL SPECIMENS, HAVE BEEN DETERMINED BY [employer]. METHODOLOGY: HYBRID CAPTURE WITH SIGNAL AMPLIFICATION Endocervical 06/24/2009 11:5 0 AM MECHANICAL INTEGRITY SPECIALIST Hannah Yanes NP PATHOLOGY/CYTOLOGY ORDERABLES Fi nal Result INTERFACE SYSTEM Refer to clinic/hospital department [facility] [address] [address] from Last 3 Months or Most Recently Relevant to Health Maintenance Insurance [facility] BLUE ACCESS/TRUE BLUE PPO
--- OUTSIDE RECORDS SUMMARY | 2025-03-07 16:51 | XMS_ITS | Encounter Summary ---
Author Organization [facility] Address [address] [place] [address] Care Team Providers Care Technician Support Association Name Role Phone Unavailable Primary Care Provider Unavailabl e Encounter Details Date Type Department Care Team (Late st Contact Info) Description 09/28/2006 Outpatient Historical [facility] SKEIN SPOOLER - Medical [facility] [address] [facility] [address] [phone] Presley Kay MD NO ADDRESS ON FILE Social History Tobacco Use Types Packs/Day Years Used Date Smoking Tobacco: Never Assessed Comments Unknown Sex and Gender Information Value Date Recorded Sex Assigned at Not on file Legal Sex Female 4:03 AM CUSTODIAN Gender Identity Not on file Sexual Orientation Not on file documented as of this encounter Plan of Treatment Not on file documented as of this encounter Visit Diagnoses Not on filedocumented in this encounter
--- OUTSIDE RECORDS SUMMARY | 2025-03-07 16:51 | XMS_ITS | Clinical Summary ---
Author Organization [facility] Address [address] [place] [address] Care Team Providers Care Bacteriologist Food Name Role Phone Sheldon Dunn DO Primary Care Provider [phone] Source Comments [facility],non-owned Affiliates and Associated Physician Practices is amultiple site organization consisting of ambulatory clinics and hospital sitesin [place], [place], [place] and [place]. This disclosure is being madepursuant to the Care Everywhere program and may not contain all information available regarding this patient. Last updated 18.[employer] Allergies No known active allergies Medications * Be aware that medications may not be up to date on this document. Alwaysverify current medications with the patient. traZODone (DESYREL) 50 MG tablet Take 1 tablet by mouth at bedtime Active Cetirizine HCl (ZYRTEC PO) Take 1 tablet by mouth once daily Active fluticasone propionate (FLONASE) 50 MCG/ACT nasal spray [place] 2 sprays into each nostril once daily Active econazole nitrate (SPECTAZOLE) 1 % creamIndications :Rash and other nonspecific skin eruption Apply to affected area once daily Apply to rash on abdomen 2 times daily. 30 days supply. 30 g 8 Active triamcinolone acetonide (KENALOG) 0.5 % creamIndications :Rash and other nonspecific skin eruption Apply to affected area 3 times daily Apply to rash on abdomen daily for 1 week. 30 days supply. 20 g 8 Active Active Problems No known active problems Family History Medical History Relation Name Comments Cancer - Skin, Melanoma Neg Hx Cancer - Skin, Non Melanoma Neg Hx Social History Tobacco Use Types Packs/Day Years Used Date Smoking Tobacco: Former Cigarettes Smokeless Tobacco: Never Alcohol Use Standard Drinks/Week Comments Yes 0 (1 standard drink = 0.6 oz pur e alcohol) Comments Unknown Sex and Gender Information Value Date Recorded Sex Assigned at Not on file Legal Sex Female 8:10 PM CDT Gender Identity Not on file Sexual Orientation Not on file Last Filed Vital Signs Vital Sign Reading Time Taken Comments Blood Pressure 136/86 08/18/2009 12:02 PM CDT Pulse 89 08/18/2009 12:02 PM CDT Temperature 36.8 C (98.3 F) 08/18/2009 12:02 PM CDT Respiratory Rate 16 08/18/2009 12:02 PM CDT Oxygen Saturation 100% 08/18/2009 12:02 PM CDT Inhaled Oxygen Concentration - - Weight 57.6 kg (127 lb) 08/18/2009 12:02 PM CDT Height 167.6 cm (5' 6) 08/18/2009 12:02 PM CDT Body Mass Index 20.5 08/18/2009 12:02 PM CDT Plan of Treatment Health Maintenance Due Date Last Done Comments LIPID TESTING 1981 MAMMOGRAM 1981 HIV SCREENING 1996 HEPATITIS C SCREENING 11/01/1999 DTAP/TDAP/TD VACCINES (1 - Tdap) 2000 HEPATITIS B VACCINE (1 of 3 - 19+ 3-dose series) 2000 PAP SMEAR 2002 HPV VACCINE (1 - 3-dose SCDM series) 2008 Cervical Cancer Screening 11/06/2011 PAP with HPV 11/06/2011 DEPRESSION SCREENING 04/24/2024 COVID-19 VACCINE (1 - 2024-2 6 season) 2024 INFLUENZA VACCINE (#1) 2024 ZOSTER VACCINE (1 of 2) 11/06/2031 HIB VACCINE Aged Out No longer eligi ble based on patient's age to complete this topic MENINGOCOCCAL (Group B) VACC INE SHARED DECISION-MAKING Aged Out No longer eligibl e based on patient's age to complete this topic MENINGOCOCCAL GROUPS A/C/Y/W VACCINE Aged Out No longer eligible b ased on patient's age to complete this topic PNEUMOCOCCAL VACCINE Aged Out No long er eligible based on patient's age to complete this topic Insurance [facility] Care Teams Bacteriologist Food Relationship Specialty Start Date End Date Sheldon Dunn DO [address] [facility] [address] [place] [phone] PCP - General 08/21/17
== END 2025-03-07 12:17 | disposition home or self-care (01) ==
PROVIDERS: PCP Obstetrics & Gynecology; Visit Provider Obstetrics & Gynecology
DX: Z12.31 Encounter for screening mammogram for malignant neoplasm of breast (principal)
CPT/HCPCS: 77063; 77067